=== PATIENT | male | born 2000 | race Two or more races ===

== ENCOUNTER 2022-01-23 13:01 | Emergency (ER) | payer BC, SELFPAY ==
--- NOTE | 2022-01-23 13:14 | ED.WOUNDLAC ---
HPI - Wound/Laceration General Stated Complaint: Laceration on nose Time Seen by Provider: 01/23/22 13:14 Source: patient Mode of arrival: ambulatory Limitations: no limitations History of Present Illness HPI narrative: 21-year-old male presents with complaint of lacerations, swelling to nose. He was in [place] and is driving back to [place] and stopped here on his way. 1 week ago he fell and landed face first on asphalt. No LOC. Did not seek any medical treatment at that time. Today he reports that he is just here to get some glue to close up his nose . All systems reviewed and negative except as noted above. Related Data Allergies Allergy/AdvReac Type Severity Reaction Status Date / Time No Known Allergies Allergy Verified 01/23/22 13:21 Review of Systems Review of Systems: CONSTITUTIONAL: Denies fever, chills, or sweats. EYES: Denies visual changes, redness, or discharge. ENT: Denies rhinorrhea, congestion, sore throat, or otalgia. CARDIOVASCULAR: Denies chest pain, palpitations, or edema. RESPIRATORY: Denies cough or dyspnea. GASTROINTESTINAL: Denies abdominal pain, nausea, vomiting, or diarrhea. GENITOURINARY: Denies dysuria or hematuria. SKIN: Denies rash or itching. Reports abrasions and lacerations to nose. MUSCULOSKELETAL: Denies back pain, joint pain, or myalgia. NEUROLOGIC: Denies headache, numbness, or weakness. PSYCHIATRIC: Denies anxiety or depression. All other systems reviewed are negative, except as documented in HPI. PMFSH Comments At time of signature, agree with nursing past medical, surgical, social and family history. There is no relevant family history pertinent to the presenting complaint. Exam Narrative: GENERAL: This is a well-nourished, well-developed patient, in no apparent distress. HEAD: normocephalic. Swelling bruising to nose, bruising extends under both eyes. EYES: PERRL. Sclera clear/white. Vision is grossly intact. EARS: External ears normal delete that what is NOSE: No deformity to nose but there is significant swelling NECK: Neck supple, non-tender without lymphadenopathy, masses or thyromegaly. CARDIOVASCULAR: Regular rate and rhythm without murmurs, gallops, or rubs. RESPIRATORY: Clear to auscultation. Breath sounds equal bilaterally. No wheezes, rales, or rhonchi. SKIN: warm, Dry,with no suspicious lesions or rash, good texture and turgor. There are lacerations and abrasions to anterior aspect of nose with swelling and erythema. Patient has a butterfly Band-Aid in place that he placed himself. There is no fluctuance concerning for abscess. NEURO: awake, alert, and oriented to person, place and time. There were no obvious focal neurologic abnormalities. EXTREMITIES: Normal range of motion to all extremities. Course Course Level of Care: Express Care Visit Vital Signs Vital signs: Vital Signs Temperature 36.0 C L 01/23/22 13:18 Pulse Rate 84 01/23/22 13:18 Respiratory Rate 16 01/23/22 13:18 Blood Pressure 117/65 01/23/22 13:18 Pulse Oximetry 100 01/23/22 13:18 Temperature 36.0 C L 01/23/22 13:18 Pulse Rate 84 01/23/22 13:18 Respiratory Rate 16 01/23/22 13:18 Blood Pressure 117/65 01/23/22 13:18 Pulse Oximetry 100 01/23/22 13:18 Reviewed MDM - Wound/Laceration MDM Narrative Medical decision making narrative: Recommend transfer to ER for facial and nasal bone CT. Patient refused. He did not feel this was necessary. Offered a nasal bone x-ray at [facility] but he also refused this. He just wants glue to close up lacerations to his nose. These lacerations are already scabbed and closing on their own. He will need to see a plastic specialist to further evaluate wounds and repair. An antibiotic was prescribed today due to concern for infection. Patient is from [place] and stated he was given a referral to a plastic specialist here he would not see them. He states that he will find one when he gets home. Patient i
[2022-01-23 13:18] VITALS: BP 117/65; PULSE 84; RESP 16; TEMP 36; O2SAT 100
== END 2022-01-23 13:24 | disposition home or self-care (01) ==
PROVIDERS: Emergency Provider Nurse Practitioner Family
DX: S01.21XA Laceration without foreign body of nose, initial encounter (principal); W19.XXXA Unspecified fall, initial encounter
CPT/HCPCS: 99203; G0463